=== PATIENT | female | born 1940 | race African-American/Black ===

== ENCOUNTER 2023-06-29 04:19 | Day surgery (SDC) | payer OTHER ==
[2023-06-23 18:11] VITALS: BMI 34.7
[~2023-06-29 04:19] MED LIST: ACETAMINOPHEN 325 MG TABLET (FP) PO PRN; CYCLOPENTOLATE HCL 1% OPHTH SOLN 2 ML BOTTLE OP SCH; KETOROLAC TROMETHAMINE 0.5% EYE DROP 1 DROP DROPS OP SCH; OFLOXACIN 0.3% OPHTHALMIC SOLUTION 5 ML BOTTLE OP SCH; PHENYLEPHRINE 2.5% OPHTH SOLN 15 ML BOTTLE OP SCH; TROPICAMIDE 1% OPHTH SOLN 15 ML BOTTLE OP SCH
[2023-06-29] MEDS ORDERED: POVIDONE-IODINE 5% OPHTHALMIC PREP 30 ML SOLUTION ONE (07:32)
[2023-06-29] MEDS ORDERED: BSS (NA/CA/MG/K) BALANCED SALT SOLUTION OPHTH SOLN 15 ML BOTTLE ONE (07:32)
[2023-06-29] MEDS ORDERED: BUPIVACAINE HCL/PF 0.75% 10 ML VIAL ONE (07:32)
[2023-06-29] MEDS ORDERED: LIDOCAINE HCL/PF 1% SDV 5ML VIAL ONE (07:32)
[2023-06-29] MEDS ORDERED: EPINEPHrine/PF 1 MG/1 ML (1:1,000) AMPULE ONE (07:32)
[2023-06-29] MEDS ORDERED: LIDOCAINE HCL/PF 2% SDV 5ML VIAL ONE (07:32)
[2023-06-29 10:00] VITALS: BP 138/70; PULSE 76; RESP 18; TEMP 98.7
[2023-06-29] MEDS ORDERED: KETOROLAC TROMETHAMINE 0.5% EYE DROP 1 DROP DROPS ONE (10:04)
[2023-06-29] MEDS ORDERED: CYCLOPENTOLATE HCL 1% OPHTH SOLN 2 ML BOTTLE ONE (10:04)
[2023-06-29] MEDS ORDERED: TROPICAMIDE 1% OPHTH SOLN 15 ML BOTTLE ONE (10:05)
[2023-06-29] MEDS ORDERED: OFLOXACIN 0.3% OPHTHALMIC SOLUTION 5 ML BOTTLE ONE (10:05)
[2023-06-29] MEDS ORDERED: PHENYLEPHRINE 2.5% OPTHALMIC DROP 2ML BOTTLE ONE (10:31)
[2023-06-29 11:18] LABS: POTASSIUM 7.5 mmol/L (3.5-5.1)
== END 2023-06-29 12:20 ==
LOC: JASU-SURG 04:19
PROVIDERS: ATTEND Ophthalmology
DX: Z53.8 Procedure and treatment not carried out for other reasons (principal)
CPT/HCPCS: 36415; 84132

== ENCOUNTER 2023-06-29 12:21 | Emergency (ER) | payer OTHER ==
[2023-06-29 12:43] VITALS: BP 149/75; PULSE 76; RESP 16; TEMP 98.3; BMI 38.7
[2023-06-29 14:12] LABS: HEMATOCRIT 41.7 % (32.4-45.2); HEMOGLOBIN 12.6 GM/dL (10.7-15.3); LYMPH % 33.3 % (8-40); MCH 21.9 pg (25.7-33.7); MCHC 30.3 g/dl (32.0-36.0); MEAN CELL VOLUME 72.2 fl (80-96); MEAN PLT VOLUME 9.4 fl (7.5-11.1); MONO % 9.7 % (3.8-10.2); PLATELET COUNT 258 10^3/uL (134-434); RBC 5.77 M/mm3 (3.60-5.2); WHITE BLOOD COUNT 6.4 K/mm3 (4.0-10.0)
[2023-06-29 14:35] LABS: POTASSIUM 4.1 mmol/L (3.5-5.1)
[2023-06-29 14:38] LABS: CALCIUM 9.1 mg/dL (8.5-10.1)
[2023-06-29 14:39] LABS: ALBUMIN 3.5 g/dl (3.4-5.0); BLOOD UREA NITROGEN 11.1 mg/dL (7-18)
[2023-06-29 14:41] LABS: CREATININE 0.8 mg/dL (0.55-1.3)
[2023-06-29 14:43] LABS: BILIRUBIN,TOTAL 0.5 mg/dL (0.2-1); TOT PROT 7.3 g/dl (6.4-8.2)
[2023-06-29 16:11] LABS: ANISOCYTOSIS 1+; MACROCYTOSIS 0; ROULEAU 1+
== END 2023-06-29 15:04 | disposition home or self-care (01) ==
LOC: JER 12:21
DX: R79.9 Abnormal finding of blood chemistry, unspecified (principal)
CPT/HCPCS: 36415; 80053; 85025; 93005; 93010; 99284-25

== ENCOUNTER 2023-08-02 03:47 | Day surgery (SDC) | payer OTHER ==
[2023-07-29 14:30] VITALS: BMI 35.5
[~2023-08-02 03:47] MED LIST changes: -CYCLOPENTOLATE HCL 1% OPHTH SOLN 2 ML BOTTLE OP SCH; -KETOROLAC TROMETHAMINE 0.5% EYE DROP 1 DROP DROPS OP SCH; -OFLOXACIN 0.3% OPHTHALMIC SOLUTION 5 ML BOTTLE OP SCH; -PHENYLEPHRINE 2.5% OPHTH SOLN 15 ML BOTTLE OP SCH; -TROPICAMIDE 1% OPHTH SOLN 15 ML BOTTLE OP SCH
[2023-08-02] MEDS ORDERED: LIDOCAINE HCL/PF 1% SDV 5ML VIAL ONE (07:12)
[2023-08-02] MEDS ORDERED: EPINEPHrine/PF 1 MG/1 ML (1:1,000) AMPULE ONE (07:12)
[2023-08-02] MEDS ORDERED: BSS (NA/CA/MG/K) BALANCED SALT SOLUTION OPHTH SOLN 15 ML BOTTLE ONE (07:12)
[2023-08-02] MEDS ORDERED: POVIDONE-IODINE 5% OPHTHALMIC PREP 30 ML SOLUTION ONE (07:13)
[2023-08-02] MEDS ORDERED: CYCLOPENTOLATE HCL 1% OPHTH SOLN 2 ML BOTTLE ONE (07:27)
[2023-08-02] MEDS ORDERED: TROPICAMIDE 1% OPHTH SOLN 15 ML BOTTLE ONE (07:27)
[2023-08-02] MEDS ORDERED: OFLOXACIN 0.3% OPHTHALMIC SOLUTION 5 ML BOTTLE ONE (07:27)
[2023-08-02] MEDS ORDERED: PHENYLEPHRINE 2.5% OPTHALMIC DROP 2ML BOTTLE ONE (07:27)
[2023-08-02] MEDS ORDERED: KETOROLAC TROMETHAMINE 0.5% EYE DROP 1 DROP DROPS ONE (07:27)
[2023-08-02] MEDS: PHENYLEPHRINE 2.5% OPHTH SOLN 15 ML BOTTLE OP SCH (07:30)
[2023-08-02] MEDS: CYCLOPENTOLATE HCL 1% OPHTH SOLN 2 ML BOTTLE OP SCH (07:30)
[2023-08-02] MEDS: OFLOXACIN 0.3% OPHTHALMIC SOLUTION 5 ML BOTTLE OP SCH (07:30)
[2023-08-02] MEDS: TROPICAMIDE 1% OPHTH SOLN 15 ML BOTTLE OP SCH (07:30)
[2023-08-02] MEDS: KETOROLAC TROMETHAMINE 0.5% EYE DROP 1 DROP DROPS OP SCH (07:30)
[2023-08-02 07:33] VITALS: RESP 18
[2023-08-02] MEDS: BUPIVACAINE HCL/PF 0.75% 10 ML VIAL RB ONE ×2 (07:53→09:02)
[2023-08-02] MEDS: LIDOCAINE HCL/PF 2% SDV 5ML VIAL SQ ONE ×2 (07:53→09:02)
[2023-08-02] MEDS: POVIDONE-IODINE 5% OPHTHALMIC PREP 30 ML SOLUTION OD ONE ×2 (07:54→09:04)
[2023-08-02] MEDS: LIDOCAINE HCL 1% PRESERVATIVE FREE - 30ML VIAL IO ONE ×2 (08:15→09:10)
[2023-08-02] MEDS: CHONDROITIN SU A/HYALUR SOD 1 KIT IO ONE (08:16)
[2023-08-02] MEDS: VANCOMYCIN 1 GM in D5W (PRE-DOCKED) 1,000 MG/250 ML (RESTRICTED TO ID ONLY IVPB ONE (08:16)
[2023-08-02] MEDS: BSS (NA/CA/MG/K) BALANCED SALT SOLUTION OPHTH SOLN 15 ML BOTTLE OD ONE ×2 (08:16→09:12)
[2023-08-02] MEDS ORDERED: MIDAZOLAM HCL 2 MG/2 ML SINGLE DOSE VIAL ONE (08:46)
[2023-08-02] MEDS ORDERED: LIDOCAINE HCL/PF 2% SDV 5ML VIAL ONE (08:46)
[2023-08-02] MEDS ORDERED: PROPOFOL 20 ML ONE (08:46)
[2023-08-02] MEDS: EPINEPHrine 1:1,000 1,000 MCG/ML ML SQ ONE (09:20)
[2023-08-02 12:42] VITALS: BP 147/76; PULSE 69; TEMP 97.9
== END 2023-08-02 10:24 | disposition home or self-care (01) ==
LOC: JASU-SURG 03:47
PROVIDERS: ATTEND Ophthalmology
PROC: 08RJ3JZ Replacement of Right Lens with Synthetic Substitute, Percutaneous Approach (ICD-10-PCS; principal; 2023-08-02 09:00)
DX: H26.9 Unspecified cataract (principal)
CPT/HCPCS: V2632

== ENCOUNTER 2023-09-07 05:04 | Day surgery (SDC) | payer OTHER ==
[2023-09-06 08:42] VITALS: BMI 35.5
[2023-09-07] MEDS ORDERED: PHENYLEPHRINE 2.5% OPTHALMIC DROP 2ML BOTTLE ONE (06:09)
[2023-09-07] MEDS ORDERED: CYCLOPENTOLATE HCL 1% OPHTH SOLN 2 ML BOTTLE ONE (06:09)
[2023-09-07] MEDS ORDERED: KETOROLAC TROMETHAMINE 0.5% EYE DROP 1 DROP DROPS ONE (06:09)
[2023-09-07] MEDS ORDERED: TROPICAMIDE 1% OPHTH SOLN 15 ML BOTTLE ONE (06:09)
[2023-09-07] MEDS ORDERED: OFLOXACIN 0.3% OPHTHALMIC SOLUTION 5 ML BOTTLE ONE (06:09)
[2023-09-07] MEDS: CYCLOPENTOLATE HCL 1% OPHTH SOLN 2 ML BOTTLE OP SCH (06:47)
[2023-09-07] MEDS: KETOROLAC TROMETHAMINE 0.5% EYE DROP 1 DROP DROPS OP SCH (06:48)
[2023-09-07] MEDS: OFLOXACIN 0.3% OPHTHALMIC SOLUTION 5 ML BOTTLE OP SCH (06:48)
[2023-09-07] MEDS: TROPICAMIDE 1% OPHTH SOLN 15 ML BOTTLE OP SCH (06:48)
[2023-09-07] MEDS: PHENYLEPHRINE 2.5% OPHTH SOLN 15 ML BOTTLE OP SCH (06:52)
[2023-09-07] MEDS ORDERED: VANCOMYCIN 500 MG VIAL (RESTRICTED TO ID ONLY) ONE (07:15)
[2023-09-07] MEDS ORDERED: EPINEPHrine/PF 1 MG/1 ML (1:1,000) AMPULE ONE (07:15)
[2023-09-07] MEDS ORDERED: BSS (NA/CA/MG/K) BALANCED SALT SOLUTION OPHTH SOLN 15 ML BOTTLE ONE (07:16)
[2023-09-07] MEDS ORDERED: PROPOFOL 20 ML ONE (08:17)
[2023-09-07] MEDS: BUPIVACAINE HCL/PF 0.75% 10 ML VIAL PNB ONE (08:20)
[2023-09-07] MEDS: LIDOCAINE HCL/PF 2% SDV 5ML VIAL PNB ONE (08:20)
[2023-09-07] MEDS: POVIDONE-IODINE 5% OPHTHALMIC PREP 30 ML SOLUTION OS ONE (08:25)
[2023-09-07] MEDS: CHONDROITIN SU A/HYALUR SOD 1 KIT IO ONE (08:27)
[2023-09-07] MEDS: LIDOCAINE HCL 1% PRESERVATIVE FREE - 30ML VIAL IO ONE (08:27)
[2023-09-07] MEDS: EPINEPHrine 1:1,000 1,000 MCG/ML ML SQ ONE (08:35)
[2023-09-07 12:19] VITALS: RESP 18
[2023-09-07 12:20] VITALS: PULSE 72
[2023-09-07 12:22] VITALS: BP 148/72; TEMP 97.5
== END 2023-09-07 09:55 | disposition home or self-care (01) ==
LOC: JASU-SURG 05:04
PROVIDERS: ATTEND Ophthalmology
PROC: 08RK30Z Replacement of Left Lens with Intraocular Telescope, Percutaneous Approach (ICD-10-PCS; principal; 2023-09-07 08:00)
DX: H26.9 Unspecified cataract (principal)
CPT/HCPCS: V2632